=== PATIENT | female | born 1980 | race Two or more races ===

== ENCOUNTER 2023-12-11 04:31 | Day surgery (SDC) | payer BC ==
[2023-12-09 11:48] VITALS: BMI 24.6
[2023-12-11] MEDS ORDERED: oxyCODONE HCL 5 MG TABLET PO PRN ×3 (11:56→13:13)
[2023-12-11] MEDS ORDERED: ACETAMINOPHEN 325 MG TABLET (FP) PO PRN (11:56)
[2023-12-11] MEDS ORDERED: IBUPROFEN 400 MG TABLET (FP) PO PRN (11:56)
[2023-12-11] MEDS ORDERED: ONDANSETRON 4 MG/2 ML VIAL IVPUSH PRN (11:57)
[2023-12-11] MEDS ORDERED: MIDAZOLAM HCL 2 MG/2 ML SINGLE DOSE VIAL ONE (12:09)
[2023-12-11] MEDS ORDERED: LIDOCAINE 1%/EPI 1:100000 (20 ML MULTI DOSE VIAL) ONE (12:27)
[2023-12-11] MEDS ORDERED: KETOROLAC TROMETHAMINE 30 MG/1 ML VIAL ONE (12:27)
[2023-12-11] MEDS ORDERED: DEXAMETHASONE SOD PHOSPHATE 4 MG/1 ML VIAL ONE (12:27)
[2023-12-11] MEDS: ceFAZolin SODIUM 1 GM VIAL IVPB ONE (12:28)
[2023-12-11] MEDS: LIDOCAINE 1%/EPI 1:100000 (50 ML MULTI DOSE VIAL) INF ONE (12:35)
[2023-12-11] MEDS ORDERED: BACITRACIN ZINC 15 GM TUBE TOPICAL OINTMENT ONE (12:59)
[2023-12-11] MEDS ORDERED: PROPOFOL 20 ML ONE (13:04)
[2023-12-11] MEDS ORDERED: LACTATED RINGERS SOLUTION 1,000 ML IV SCH (13:15)
[2023-12-11 14:52] VITALS: RESP 16
[2023-12-11 15:33] VITALS: BP 115/64; PULSE 72; TEMP 97.8
== END 2023-12-11 15:45 | disposition home or self-care (01) ==
LOC: JASU-SURG 04:31
PROVIDERS: ATTEND Obstetrics & Gynecology
PROC: 0UBL0ZZ Excision of Vestibular Gland, Open Approach (ICD-10-PCS; principal; 2023-12-11 13:00)
DX: N75.0 Cyst of Bartholin's gland (principal)
CPT/HCPCS: 81025; 87070; 87186; 87205; 88304-TC; 94760

== ENCOUNTER 2024-03-02 21:48 | Emergency (ER) | payer BC ==
[2024-03-02 22:14] VITALS: BP 120/60; PULSE 83; RESP 18; TEMP 97.9; BMI 24.3
[2024-03-02 22:57] LABS: BASO % 0.6 % (0-2.0); EOS % 1.3 % (0-4.5); HEMATOCRIT 37.2 % (32.4-45.2); HEMOGLOBIN 12.7 GM/dL (10.7-15.3); LYMPH % 24.5 % (8-40); MCH 29.5 pg (25.7-33.7); MCHC 34.1 g/dl (32.0-36.0); MEAN CELL VOLUME 86.6 fl (80-96); MEAN PLT VOLUME 8.5 fl (7.5-11.1); MONO % 5.3 % (3.8-10.2); NEUT % 68.3 % (42.8-82.8); PLATELET COUNT 280 10^3/uL (134-434); RBC 4.29 M/mm3 (3.60-5.2); RDW 12.9 % (11.6-15.6); WHITE BLOOD COUNT 10.6 K/mm3 (4.0-10.0)
[2024-03-02 23:05] LABS: INR 0.96 (0.83-1.09); PROTHROMBIN TIME (PATIENT) 11.1 SEC (9.7-13.0)
[2024-03-02 23:08] LABS: ACTIVATED PTT 28.7 SECONDS (25.2-36.5)
[2024-03-02] MEDS: ASPIRIN 81 MG CHEWABLE TABLETS PO ONE (23:08)
[2024-03-02 23:16] LABS: CHLORIDE 107 mmol/L (98-107); SODIUM 139 mmol/L (136-145)
[2024-03-02 23:19] LABS: ALBUMIN 3.8 g/dl (3.4-5.0); ANION GAP 5 mmol/L (4-13); BLOOD UREA NITROGEN 9.8 mg/dL (7-18); CO2 27 mmol/L (21-32); GLUCOSE,RANDOM 108 mg/dL (74-106); MAGNESIUM 2.1 mg/dL (1.8-2.4)
[2024-03-02 23:22] LABS: CREATININE 0.7 mg/dL (0.55-1.3); SGOT/AST 41 U/L (15-37); SGPT/ALT 53 U/L (13-61)
[2024-03-02 23:24] LABS: BILIRUBIN,TOTAL 0.3 mg/dL (0.2-1); TOT PROT 6.7 g/dl (6.4-8.2)
[2024-03-02 23:25] LABS: ALK PHOS 83 U/L (45-117)
== END 2024-03-03 00:23 | disposition home or self-care (01) ==
LOC: JER 21:48
DX: R07.9 Chest pain, unspecified (principal); R06.02 Shortness of breath; R00.2 Palpitations; Z20.822 Contact with and (suspected) exposure to COVID-19
CPT/HCPCS: 0241U-QW; 36415; 71046-TC-FY; 80053; 82550; 83735; 84484; 85025; 85610; 85730; 93005; 93010; 99285-25